=== PATIENT | female | born 1960 | race Caucasian/White ===

== ENCOUNTER 2016-11-10 12:40 | Emergency (ER) | payer MEDICAID ==
--- NOTE | 2016-11-10 13:28 | Diagnostic Imaging Report ---
CT scan cervical spine HISTORY: Pain, old injury Total DLP equals 312 CTDI equals 18.5 Axial sections were obtained through the cervical spine. Additional sagittal and coronal reformatted images are provided. The exam demonstrates degenerative changes with hypertrophic spur formation noted about the endplates of C5, C6, and C7. Spur formation results in mild to moderate extradural indentations on the anterior spinal canal at C5-6 and to a somewhat greater degree C6-7. Hypertrophic bony changes result in neural foraminal encroachment at C4-5 particularly on the right side. No acute abnormalities. No fractures. The prevertebral soft tissues appear normal. IMPRESSION: 1. No acute abnormalities 2. Diffuse degenerative changes most pronounced in the lower cervical region.
--- NOTE | 2016-11-10 13:48 | ED Physician Chart ---
Chief Complaint/HPI - Patient Information Date Seen:: 11/10/16 Time Seen:: 13:02 Chief Complaint:: NECK PAIN History of Present Illness:: THIS IS A 56 YO FEMALE WITH RECURRENT DIFFICULTY WITH NECK PAIN AND UPPER EXTREMITY WEAKNESS. SHE WAS HERE TWO YEARS AGO AND SINCE THEN HAS BEEN Allergies:: Allergies Allergy/AdvReac Type Severity Reaction Status Date / Time egg Allergy Verified 11/10/16 13:02 milk Allergy Verified 11/10/16 13:02 Vitals:: Vital Signs - 8 hr 11/10/16 12:58 Temp 98.9 F HR 73 RR 16 BP 140/73 O2 Sat % 98 Past Medical History - Past Medical History Obtainable: Yes Past Medical History: HTN, Asthma/COPD Family History: None Social History: Smoker, No Alcohol, No Drug Use, Surgical History: None Psychiatricy History: Depression, Bipolar Medication: Reviewed Family Medical History - Family Member Mother History Unknown: Yes Ethnicity: Unknown Living Status: Hx Family Cancer: Yes Hx Family Coronary Artery Disease: No Hx Family Congestive Heart Failure: No Hx Family Hypertension: No Hx Family Stroke: No Hx Family Diabetes: No Hx Family Seizures: No Hx Family Dementia: No Hx Family AIDS: No Hx Family HIV: No Hx Family COPD: No Hx Family Hepatitis: No Hx Family Psychiatric Problems: No Hx Family Tuberculosis: No Physical Exam - Physical Examination General/Constitutional: Awake, Well-developed, well-nourished, Alert, No distress, GCS 15, Non-toxic appearing, Ambulatory Head: Atraumatic Eyes: Lids, conjuctiva normal, PERRL, EOMI Skin: Nl inspection, No rash, No skin lesions, No ecchymosis, Well hydrated, No lymphadenopathy ENMT: External ears, nose nl, Nasal exam nl, Lips, teeth, gums nl Neck: No JVD, No nuchal rigidity, No bruit, No mass, No stridor Other Neck comments:: THE POSTERIOR CERVICAL SPINE AREA IS PAINFUL ON ROM, WITH PARA SPINE TENDERNESS. Respiratory: Nl effort/Exclusion, Clear to Auscultation Other Respiratory comments:: BILATERAL RHONCHI HEARD. Cardio Vascular: RRR, No murmur, gallop, rubs, NL S1 S2 GI: No tenderness/rebounding/guarding, No organomegaly, No hernia, Normal BS's, Nondistended, No mass/bruits, No McBurney tenderness : No CVA tenderness Extremities: No tenderness or effusion, Full ROM, normal strength in all extremities, No edema, Normal digits & nails Neuro/Psych: Alert/oriented, DTR's symmetric, Normal sensory exam, Normal motor strength, Judgement/insight normal, Mood normal, Normal gait, No focal deficits Misc: normal gait, Normal back, No paraspinal tenderness ED Septic Shock - . Is Septic Shock (SBP<90, OR Lactate>4 mmol\L) present?: No - <6hrs of presentation: Vital Signs: Vital Signs - 8 hr 11/10/16 12:58 Temp 98.9 F HR 73 RR 16 BP 140/73 O2 Sat % 98
== END 2016-11-10 15:00 | disposition home or self-care (01) ==
LOC: ER 12:40
DX: M54.2 Cervicalgia (principal); R53.1 Weakness; I10 Essential (primary) hypertension; J45.909 Unspecified asthma, uncomplicated; J44.9 Chronic obstructive pulmonary disease, unspecified; F17.200 Nicotine dependence, unspecified, uncomplicated; Z91.012 Allergy to eggs; Z91.011 Allergy to milk products
CPT/HCPCS: 72125-TC; J1885; Z7502

== ENCOUNTER 2017-08-27 20:17 | Emergency (ER) | payer MEDICAID ==
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
--- NOTE | 2017-08-28 07:39 | Diagnostic Imaging Report ---
Left foot 2 views Indication: Trauma Comparison: none Findings: Exam is limited as oblique views were not obtained. Mild to moderate degenerative changes are noted. No gross acute fracture is identified. There is mild soft tissue swelling along the dorsal forefoot. There is slight widening of the space between the first and second metatarsals. There may have been old trauma to the distal fibula. Impression: Limited exam as oblique views are not obtained. No gross acute fractures identified, however, oblique views are recommended for further assessment Slight widening between the space between the first and second metatarsals. This may be accentuated by projection. If there is history of trauma in this region or if there is concern for a Lisfranc ligamentous injury, further assessment with MRI is recommended. Note was made of mild soft tissue swelling along the dorsal foot. In the setting of trauma, if clinical symptoms persist and there is continued concern for an occult fracture, follow up exams in 5-7 days is suggested.
== END 2017-08-27 22:25 | disposition home or self-care (01) ==
LOC: ER 20:17
DX: S90.32XA Contusion of left foot, initial encounter (principal); J45.909 Unspecified asthma, uncomplicated; J44.9 Chronic obstructive pulmonary disease, unspecified; F17.210 Nicotine dependence, cigarettes, uncomplicated; F31.9 Bipolar disorder, unspecified; Z91.012 Allergy to eggs; Z91.011 Allergy to milk products; W20.8XXA Other cause of strike by thrown, projected or falling object, initial encounter; Y93.89 Activity, other specified; Y92.89 Other specified places as the place of occurrence of the external cause; Y99.8 Other external cause status
CPT/HCPCS: 73620-TC-LT; Z7502